=== PATIENT | male | born 1980 | race African-American/Black ===

== ENCOUNTER 2025-01-03 17:26 | Emergency (ER) | payer MEDICARE, OTHER ==
[~2025-01-03] VITALS: Ht 182.9 cm; Wt 72.4 kg
--- NOTE | 2025-01-03 17:50 | ED.PDOC ---
History of Present Illness HPI Comments sore throat, nasal congestion Chief Complaint: Shortness of Breath Comments pt has had runny nose, nasal congestion with a sore throat since saturday. no coughing, no fever. no trouble swallowing Time Seen by MD: 17:43 Primary Care Provider: NONE Reviewed Notes: Nurses Notes, Medications, Allergies Allergies: Coded Allergies: NO KNOWN ALLERGIES (Unverified , 01/03/25) Information Source: Patient Mode of Arrival: Ambulatory Severity: Mild Timing: Days Duration: Since onset Past Medical History PAST MEDICAL HISTORY: Denies Surgical History: Denies all surgeries Family History Family History: Reviewed,noncontributory to illness, No family hx of Cancer, No family hx of DM, No family hx of Heart jocelyne, No family hx of HTN, No family hx ofKidney jocelyne, No family hx of Liver jocelyne, No family hx of Lung jocelyne, No family hx of Stroke Social History Smoker: Non-Smoker Alcohol: Denies ETOH Use Drugs: Denies Drug Use Constitutional: denies: chills, diaphoresis, fatigue, fever, malaise, sweats, weakness, others EENTM: reports: nasal discharge, nose congestion, throat pain; denies: blurred vision, double vision, ear bleeding, ear discharge, ear drainage, ear pain, ear ringing, eye pain, eye redness, hearing loss, mouth pain, mouth swelling, nose bleeding, nose pain, photophobia, tearing, throat swelling, voice changes, others Respiratory: denies: cough, hemoptysis, orthopnea, SOB at rest, shortness of breath, SOB with excertion, stridor, wheezing, others Cardiovascular: denies: chest pain, dizzy spells, diaphoresis, Dyspnea on exertion, edema, irregular heart beat, left arm pain, lightheadedness, palpitations, PND, syncope, others Gastrointestinal: denies: abdomen distended, abdominal pain, blood streaked bowels, constipated, diarrhea, dysphagia, difficulty swallowing, hematemesis, melena, nausea, poor appetite, poor fluid intake, rectal bleeding, rectal pain, vomiting, others Genitourinary: denies: burning, dysuria, flank pain, frequency, hematuria, incontinence, penile discharge, penile sore, pain, testicle pain, testicle swelling, urgency, others Neurological: denies: dizziness, fainting, headache, left sided numbness, left sided weakness, numbness, paresthesia, pre-existing deficit, right sided numbness, right sided weakness, seizure, speech problems, tingling, tremors, weakness, others Musculoskeletal: denies: back pain, gout, joint pain, joint swelling, muscle pain, muscle stiffness, neck pain, others Integumetry: denies: bruises, change in color, change in hair/nails, dryness, laceration, lesions, lumps, rash, wounds, others Allergic/Immunocompromised: denies: Difficulty Healing, Frequent Infections, Hives, Itching, others Hematologic/Lymphatic: denies: anemia, blood clots, easy bleeding, easy bruising, swollen glands, others Endocrine: denies: excessive hunger, excessive sweating, excessive thirst, excessive urination, flushing, intolerance to cold, intolerance to heat, unexplained weight gain, unexplained weight loss, others Psychiatric: denies: anxiety, bipolar disorder, depression, hopeless, panic disorder, schizophrenia, sleepless, suicidal, others All Other Systems: Reviewed and Negative Physical Exam Exam Comments clear nasal discharge. no hoarseness, no stridors, no wheezes. no drooling. normal voice. no tonsillar swelling, mild left tonsillar white discharge General Appearance: No Apparent Distress, Normal HEENT: Normal ENT Inspection, Pharynx Normal, TMs Normal Neck: Full Range of Motion, Non-Tender, Normal, Normal Inspection Respiratory: Chest Non-Tender, Lungs Clear, No Accessory Muscle Use, No Respiratory Distress, Normal Breath Sounds Cardiovascular: No Edema, No JVD, No Murmur, No Gallop, Normal Peripheral Pulses, Regular Rate/Rhythm Breast Exam: Deferred Gastrointestinal: No Organomegaly, Non Tender, No Pulsatile Mass, Normal Bowel Sounds, Soft Genitalia: Deferred Pelvic: Deferred Rectal: Deferred Extremities: No calf tenderness, Normal capillary refill, Normal inspection, Normal range of motion, Non-tender, No pedal edema Musculoskeletal : Apperance: Normal Neurologic: Alert, functional mental disability teacher II-XII nml as Tested, No Motor Deficits, Normal Affect, Normal Mood, No Sensory Deficits Cerebellar Function: Normal Reflexes: Normal Skin: Dry, Normal Color, Warm Lymphatic: No Adenopathy Was a procedure done? Was a procedure done?: No EKG EKG : Pulse Rate (adult): 78 Oden: Normal Cardiac Rhythm: NSR Block: None Hypertrophy: None ST: Normal Differential Dx Considerations may include: tonsillitis, peritonsillar abscess, tracheitis, viral uri X-Ray, Labs, Meds, VS Vital Signs Date Time Temp Pulse Resp B/P (MAP) Pulse Ox O2 Delivery O2 Flow Rate FiO2 01/03/25 18:13 99.2 69 20 166/57 (93) 99 99.2 01/03/25 18:13 69 20 99 Room Air 01/03/25 17:52 78 01/03/25 17:48 78 01/03/25 17:42 97.9 84 18 129/61 (83) 99 97.9 Current Medications Medications (Trade) Dose Ordered Sig/Josmeanuel Route Start Time Stop Time Status Last Admin Penicillin G Benzathine (Bicillin L-A) 2,400,000 units ONCE ONCE IM 01/03/25 18:00 01/03/25 18:01 DC 01/03/25 18:33 Ketorolac Tromethamine (Toradol Injection) 60 mg ONCE ONCE IM 01/03/25 18:00 01/03/25 18:01 DC 01/03/25 18:31 Time of 1ST Reevaluation: 19:03 Reevaluation 1ST: Improved Patient Education/Counseling: Diagnosis, Treatment, Prognosis, Need For Follow Up Family Education/Counseling: No Family Present Additional Information pt does not have hoarseness, stridors, drooling, visible abscess, no uvula deviation. he has a mild left tonsillar white discharge. clinically he has tonsillitis. Centor criteria is 1, but given with the visible exudate, i will start treating for possible strep infection Departure 1 Departure Time of Disposition: 19:04 Impression: Primary Impression: Tonsillitis Disposition: 01 HOME / SELF CARE / HOMELESS Condition: Good Additional Instructions: if you're not better in 24 hours, or if you feel worsen at any time, return for recheck e-Prescriptions Dexamethasone (Decadron) 4 Mg Tb 4 MG PO DAILY PRN for 3 Days, #3 TAB Prov: ZAMZAM LY MD 01/03/25 Ibuprofen Micronized (MOTRIN TABLET) 600 Mg Tb 600 MG PO TID PRN, #40 TAB *Black box warning-NSAIDS can increase risk of [place] & hypertension, GI irritation, ulceration, bleed, perferation. Do not use post cardiac surgery. Use short duration/lowest effective dose. Prov: ZAMZAM LY MD 01/03/25 Amoxicillin & Pot Clavulanate (AUGMENTIN TABLET) 875 Mg Tb 875 MG PO BID for 7 Days, #14 TAB Prov: ZAMZAM LY MD 01/03/25 Discharged With: Self Critical Care Note Critical Care Time?: No Stability Stability form required: No ZAMZAM LY MD January 03, 2025 17:50
[2025-01-03] MEDS ORDERED: DexAMETHasone 0.5MG/5ML ORAL ELIX PO ONE (18:00)
[2025-01-03 18:13] VITALS: BP 166/57; PULSE 69; RESP 20; TEMP 99.2; O2SAT 99
[2025-01-03] MEDS: KETOROLAC TROMETH 60MG/2ML VIAL IM ONE (18:31)
[2025-01-03] MEDS: PENICILLIN G BENZ 1,200,000 UNITS/2 ML SYRG IM ONE (18:33)
[2025-01-03] MEDS ORDERED: DEX4T PO (19:05)
[2025-01-03] MEDS ORDERED: IBU600T PO (19:05)
[2025-01-03] MEDS ORDERED: AUG875T PO (19:05)
[2025-01-03] MEDS: methylPREDNISolone SOD SUCC 125 MG/2 ML VL IM ONE (19:36)
--- NOTE | 2025-01-04 12:59 | ECG ---
[facility] Test Date: 2025-01-03 Test Time: 17:48:19 Pat Name: HUGO AGUIRRE Department: ER Room: Gender: M Residential Coordinator: : 1980 Requested By: ZAMZAM LY Order Number: [id number] Reading MD: Duglas Irizarry Measurements Intervals [place] Rate: 78 P: 51 [place]: 138 QRS: 45 QRSD: 80 T: 61 QT: 359 QTc: 409 Interpretive Statements Sinus rhythm Electronically Signed On 01-11-2025 10:56:17 PDT by Duglas Irizarry Please click the below link to view image of tracing.
== END 2025-01-03 19:38 | disposition home or self-care (01) ==
LOC: ER 17:37
DX: J03.90 Acute tonsillitis, unspecified (principal); R06.02 Shortness of breath
CPT/HCPCS: 93005; 96372; 99284; J0561; J1885

== ENCOUNTER 2025-05-09 16:44 | Emergency (ER) | payer OTHER ==
[~2025-05-09] VITALS: Ht 182.9 cm; Wt 71.6 kg
[~2025-05-09 16:44] MED LIST: AUG875T PO; DEX4T PO; IBU600T PO
--- NOTE | 2025-05-09 17:20 | ED.PDOC ---
Eye-HPI HPI Comments A 44 YEAR OLD MALE PRESENTS TO THE ED WITH COMPLAINT OF BODY ACHES, SORE THROAT, AND LOSS OF TASTE AND SMELL. PATIENT STATES HE HAS BEEN EXPERIENCING A SORE THROAT, CONGESTION, BODY ACHES, LOSS OF TASTE, AND LOSS OF SMELL FOR THE PAST 3 DAYS. PATIENT DENIES FEVER, CHILLS, SHORTNESS OF BREATH, CHEST PAIN, ABDOMINAL PAIN, NAUSEA, VOMITING, HEADACHE, OR OTHER COMPLAINTS. NO OTHER SYMPTOMS OR MODIFYING FACTORS AT THIS TIME. PATIENT IS ALERT, ORIENTED X 4, AND HAS STEADY GAIT. Chief Complaint: Flu like Time Seen by MD: 16:48 Primary Care Provider: NONE Reviewed Notes: Nurses Notes, Medications, Allergies Allergies: Coded Allergies: NO KNOWN ALLERGIES (Unverified , 01/03/25) Home Meds Active Scripts Azithromycin (Azithromycin) 500 Mg Tab, 1 TAB PO DAILY, #5 TAB Prov:LENNY GALLARDO 05/09/25 Ibuprofen (Ibuprofen) 800 Mg Tab, 1 TAB PO TID, #30 TAB Prov:LENNY GALLARDO 05/09/25 Dexamethasone (Decadron) 4 Mg Tb, 4 MG PO DAILY PRN for 3 Days, #3 TAB Prov:ZAMZAM LY MD 01/03/25 Ibuprofen Micronized (MOTRIN TABLET) 600 Mg Tb, 600 MG PO TID PRN, #40 TAB *Black box warning-NSAIDS can increase risk of [place] & hypertension, GI irritation, ulceration, bleed, perferation. Do not use post cardiac surgery. Use short duration/lowest effective dose. Prov:ZAMZAM LY MD 01/03/25 Amoxicillin & Pot Clavulanate (AUGMENTIN TABLET) 875 Mg Tb, 875 MG PO BID for 7 Days, #14 TAB Prov:ZAMZAM LY MD 01/03/25 Information Source: Patient Mode of Arrival: Ambulatory Timing: Days Duration: Since onset, Days Prehospital treatment: None Quality: Pain, Red Lids: Normal Conjunctiva: Normal Cornea: Normal Pupils: Normal EOM: Normal Fundus: Normal Slit lamp exam: Normal Anterior chamber: Normal Mouth Location: Pharynx Mouth: Normal ENT Ear Exam: Normal, Normal, Normal Nose: Normal Sinuses: Normal Oropharynx: Tonsillar hypertrophy, Red Onset: Spontaneous Throat Exposed to: None History of: None Last Tetanus: Unknown Modifying factors: Nothing Associated signs and symptoms: Nasal Symptoms, Sore Throat Past Medical History PAST MEDICAL HISTORY: Denies Surgical History: Denies all surgeries Family History Family History: Reviewed,noncontributory to illness, No family hx of Cancer, No family hx of DM, No family hx of Heart jocelyne, No family hx of HTN, No family hx ofKidney jocelyne, No family hx of Liver jocelyne, No family hx of Lung jocelyne, No family hx of Stroke Social History Smoker: Non-Smoker Alcohol: Denies ETOH Use Drugs: Denies Drug Use Lives In: Home Constitutional: denies: chills, diaphoresis, fatigue, fever, malaise, sweats, weakness, others EENTM: reports: nose congestion, throat pain, throat swelling, voice changes; denies: blurred vision, double vision, ear bleeding, ear discharge, ear drainage, ear pain, ear ringing, eye pain, eye redness, hearing loss, mouth pain, mouth swelling, nasal discharge, nose bleeding, nose pain, photophobia, tearing, others Respiratory: denies: cough, hemoptysis, orthopnea, SOB at rest, shortness of breath, SOB with excertion, stridor, wheezing, others Cardiovascular: denies: chest pain, dizzy spells, diaphoresis, Dyspnea on exertion, edema, irregular heart beat, left arm pain, lightheadedness, palpitations, PND, syncope, others Gastrointestinal: denies: abdomen distended, abdominal pain, blood streaked bowels, constipated, diarrhea, dysphagia, difficulty swallowing, hematemesis, melena, nausea, poor appetite, poor fluid intake, rectal bleeding, rectal pain, vomiting, others Genitourinary: denies: burning, dysuria, flank pain, frequency, hematuria, incontinence, penile discharge, penile sore, pain, testicle pain, testicle swelling, urgency, others Neurological: denies: dizziness, fainting, headache, left sided numbness, left sided weakness, numbness, paresthesia, pre-existing deficit, right sided numbness, right sided weakness, seizure, speech problems, tingling, tremors, weakness, others Musculoskeletal: reports: muscle pain; denies: back pain, gout, joint pain, joint swelling, muscle stiffness, neck pain, others Integumetry: denies: bruises, change in color, change in hair/nails, dryness, laceration, lesions, lumps, rash, wounds, others Allergic/Immunocompromised: denies: Difficulty Healing, Frequent Infections, Hives, Itching, others Hematologic/Lymphatic: denies: anemia, blood clots, easy bleeding, easy bruising, swollen glands, others Endocrine: denies: excessive hunger, excessive sweating, excessive thirst, excessive urination, flushing, intolerance to cold, intolerance to heat, unexplained weight gain, unexplained weight loss, others Psychiatric: denies: anxiety, bipolar disorder, depression, hopeless, panic disorder, schizophrenia, sleepless, suicidal, others All Other Systems: Reviewed and Negative Physical Exam General Appearance: Mild Distress HEENT: PERRL/EOMI, Pharyngeal Erythema (TONSILLAR SWELLING, NO EXUDATES. ), TMs Normal Neck: Full Range of Motion, Non-Tender, Normal, Normal Inspection Respiratory: Chest Non-Tender, Lungs Clear, No Accessory Muscle Use, No Respiratory Distress, Normal Breath Sounds Cardiovascular: No Edema, No JVD, No Murmur, No Gallop, Normal Peripheral Pulses, Regular Rate/Rhythm Breast Exam: Deferred Gastrointestinal: No Organomegaly, Non Tender, No Pulsatile Mass, Normal Bowel Sounds, Soft Genitalia: Deferred Pelvic: Deferred Rectal: Deferred Extremities: No calf tenderness, Normal capillary refill, Normal inspection, Normal range of motion, Non-tender, No pedal edema Musculoskeletal : Apperance: Normal Neurologic: Alert, security operations specialist II-XII nml as Tested, No Motor Deficits, Normal Affect, Normal Mood, No Sensory Deficits Cerebellar Function: Normal Reflexes: Normal Skin: Dry, Normal Color, Warm Peripheral Pulses: 2+ carotid (R), 2+ carotid (L) Lymphatic: No Adenopathy Was a procedure done? Was a procedure done?: No EENT DIFF Eye: N/A Ear: Otitis Media, Pharyngitis, Sinusitis Nose: N/A Mouth: N/A Sore Throat: Pharyngitis, Streptococcal, Viral Pharyngitis, URI X-Ray, Labs, Meds, VS Vital Signs Date Time Temp Pulse Resp B/P (MAP) Pulse Ox O2 Delivery O2 Flow Rate FiO2 05/09/25 17:51 99.5 90 16 126/94 (105) 96 99.5 05/09/25 17:51 90 16 90 Room Air 05/09/25 16:46 99.5 90 16 126/94 96 99.5 Lab Test 05/09/25 17:00 Range/Units SARS-CoV-2 Antigen (Rapid) Negative NEGATIVE Current Medications Medications (Trade) Dose Ordered Sig/Josemanuel Route Start Time Stop Time Status Last Admin Ceftriaxone Sodium (Rocephin) 1,000 mg ONCE ONCE IM 05/09/25 17:45 05/09/25 17:46 DC 05/09/25 17:50 Acetaminophen (Tylenol Tablet Or Capsule) 1,000 mg ONCE ONCE PO 05/09/25 17:45 05/09/25 17:46 DC 05/09/25 17:45 PATIENT: HUGO AGUIRRE SHAROMACCT: [id number]: [id number] : 1980 LOC: ER ROOM / BED: / AGE / SEX: 44 / M ADM STATUS: REG ER SERVICE 09 ORDERING PHYSICIAN: LENNY GALLARDO PROCEDURE(s): CXR1 - CHEST XRAY 1 VIEW REASON: FLUE ORDER NUMBER(s): [id number], ACCESSION NUMBER(s): [id number] CHEST RADIOGRAPH Indication: FLUE Technique: Single frontal view of the chest was obtained Comparison: None FINDINGS: Lines and Tubes: None Lungs: No focal consolidation. Pleura: No effusion. No pneumothorax. Cardiomediastinal contours: Unremarkable Bones: No acute osseous abnormality. IMPRESSION: 1. No acute cardiopulmonary disease. ATED BY: ARACELI REYNA Jr., DO DICTATED DATE/TIME: 05/09/251733 SIGNED BY: ARACELI REYNA Jr., SIGNED DATE/TIME: 05/09/251733 CC: X-Ray, Labs, Meds, VS Comment EXTERNAL MEDICAL RECORDS REVIEWED: [NONE] INDEPENDENT HISTORIANS: [NONE] SOCIAL DETERMINANTS OF HEALTH: [NONE] LABS ORDERED: COVID-19 ANTIGEN REVIEWED AND INTERPRETED RESULTS: NEGATIVE IMAGING ORDERED: XR CHEST TREATMENTS ORDERED: ROCEPHIN 1 G IM, TYLENOL 1 G P.O. PROCEDURES PERFORMED: NONE CRITICAL CARE TIME: NONE I HAVE DISCUSSED THE PATIENT WITH THE ATTENDING PHYSICIAN DR. CESAR AND HE AGREES WITH THE PATIENT'S PLAN OF CARE AND DISPOSITION. BASED ON HISTORY OF PRESENT ILLNESS, AND PHYSICAL EXAM, PATIENT WILL BE DISCHARGED HOME. DISCUSSED PLAN FOR DISCHARGE HOME WITH RX [AZITHROMYCIN AND MOTRIN 800MG]. MEDICATION WARNINGS GIVEN. SHARED DECISION MAKING: PATIENT INSTRUCTED TO FOLLOW UP WITH PRIMARY CARE PROVIDER IN 1-2 DAYS FOR RE-EVALUATION OF SYMPTOMS. PATIENT VERBALIZES UNDERSTANDING TO RETURN TO ED FOR NEW OR WORSENING SYMPTOMS OR IF FOLLOW UP WITH PCP CANNOT BE OBTAINED. PATIENT FEELS COMFORTABLE GOING HOME AT THIS TIME. ALL QUESTIONS ADDRESSED AT TIME OF DISCHARGE. Images Reviewed?: Images reviewed and evaluated by me Time of 1ST Reevaluation: 18:00 Reevaluation 1ST: Improved Patient Education/Counseling: Diagnosis, Treatment, Need For Follow Up Family Education/Counseling: Diagnosis, Treatment, Need For Follow Up Medical Screening: No EMC Exist At This Time SEPSIS Sepsis Screen Date sepsis recognized/suspect: May 09, 2025 Time Sepsis recognized/suspect: 1647 Recent Procedure: No On Antibiotic Therapy: No Respiratory Rate >20: No Heart Rate >90: Yes Temp<36 C (96.8 F) or >38.3 C: No SBP <90 or MAP <65 mmHG: No New Acute Mental Status Change: No Is the patient on CPAP, BIPAP,: No Physician Orders Chest Xray 1 View (05/09/25 17:10) Vital Signs Date Time Temp Pulse Resp B/P (MAP) Pulse Ox O2 Delivery O2 Flow Rate FiO2 05/09/25 17:51 99.5 90 16 126/94 (105) 96 99.5 05/09/25 17:51 90 16 90 Room Air 05/09/25 16:46 99.5 90 16 126/94 96 99.5 Medications Medications Dose Ordered Sig/Josemanuel Route Start Time Stop Time Status Last Admin Dose Admin Acetaminophen 1,000 mg ONCE ONCE PO 05/09/25 17:45 05/09/25 17:46 DC 05/09/25 17:45 Ceftriaxone Sodium 1,000 mg ONCE ONCE IM 05/09/25 17:45 05/09/25 17:46 DC 05/09/25 17:50 Departure 1 Departure Time of Disposition: 18:00 Impression: Primary Impression: Acute tonsillitis Qualified Codes: J03.90 - Acute tonsillitis, unspecified Additional Impression: Lab test negative for COVID-19 virus Disposition: HOME / SELF CARE / HOMELESS Condition: Stable Additional Instructions: FOLLOW-UP WITH PCP IN 1 TO 2 DAYS. TAKE MEDICATIONS PRESCRIBED. RETURN TO ED FOR ANY NEW OR WORSENING SYMPTOMS. e-Prescriptions Azithromycin (Azithromycin) 500 Mg Tab 1 TAB PO DAILY, #5 TAB Prov: LENNY GALLARDO 05/09/25 Ibuprofen (Ibuprofen) 800 Mg Tab 1 TAB PO TID, #30 TAB Prov: LENNY GALLARDO 05/09/25 Discharged With: Self Critical Care Note Critical Care Time?: No Stability Stability form required: No I personally scribed for LENNY GALLARDO ([email or web address]) on 05/09/25 at 17:20. Electronically submitted by Hermelindo Tran ([employer]). I personally scribed for LENNY GALLARDO ([email or web address]) on 05/09/25 at 17:40. Electronically submitted by Hermelindo Tran ([employer]). I personally scribed for LENNY GALLARDO ([email or web address]) on 05/09/25 at 17:54. Electronically submitted by Hermelindo Tran ([employer]). LENNY GALLARDO May 09, 2025 17:20
--- NOTE | 2025-05-09 17:36 | DVH ---
CHEST RADIOGRAPH Indication: FLUE Technique: Single frontal view of the chest was obtained Comparison: None FINDINGS: Lines and Tubes: None Lungs: No focal consolidation. Pleura: No effusion. No pneumothorax. Cardiomediastinal contours: Unremarkable Bones: No acute osseous abnormality. IMPRESSION: 1. No acute cardiopulmonary disease.
[2025-05-09] MEDS: ACETAMINOPHEN 500 MG TAB or CAP PO ONE (17:45)
[2025-05-09] MEDS: cefTRIAXone SOD 1,000 MG VL IM ONE (17:50)
[2025-05-09 17:51] VITALS: BP 126/94; PULSE 90; RESP 16; TEMP 99.5; O2SAT 90
[2025-05-09 17:51] LABS: COVID19 ANTIGEN SOFIA FIA NEGATIVE (NEGATIVE)
[2025-05-09] MEDS ORDERED: IBUP-1456 PO (17:59)
[2025-05-09] MEDS ORDERED: AZIT500T66 PO (17:59)
== END 2025-05-09 18:04 | disposition home or self-care (01) ==
LOC: ER 16:46
DX: J03.90 Acute tonsillitis, unspecified (principal); Z79.899 Other long term (current) drug therapy; Z79.1 Long term (current) use of non-steroidal anti-inflammatories (NSAID); Z20.822 Contact with and (suspected) exposure to COVID-19
CPT/HCPCS: 36415; 71045; 87426; 96372; 99284; J0696